=== PATIENT | male | born 1960 | race Hispanic/Latino ===

== ENCOUNTER 2024-01-22 11:25 | Day surgery (SDC) | payer BC ==
[2024-01-21 12:03] LABS: Anion Gap 9.3 mEq/L (5.0-15.0); Potassium 4.3 mEq/L (3.5-5.1)
[2024-01-21 12:04] LABS: Absolute Basophils 0.1 K/uL (0-0.5); Absolute Eosinophils 0.1 K/uL (0-0.5); Absolute Monocytes 0.6 K/uL (0.1-1.3); Absolute Neutrophil 3.9 K/uL (1.8-8.0); Basophils % 0.9 % (0-1.3); Eosinophils % 1.2 % (0-4.4); Hematocrit 43.8 % (39.6-49.0); Hemoglobin 14.9 g/dL (13.6-17.9); Lymphocytes % 29.9 % (15.3-44.8); MCH 31.6 pg (27.0-35.0); MCHC 33.9 g/dL (32.0-36.0); MCV 93.2 fL (80-100); MPV 9.5 fL (7.6-11.3); Monocytes % 8.7 % (3.3-12.3); Neutrophils % 59.3 % (41.7-73.7); Nucleated RBC Absolute Count 0.1 (0-0); Nucleated Red Blood Cells % 1.4 % (0-0); Platelets 183 thou/uL (152-406); RBC Red Blood Cell Count 4.71 M/uL (4.33-5.43); Red Cell Distribution Width 13.2 % (12.1-15.2)
[2024-01-21 14:01] LABS: Blood Morphology Comment NOT SEEN (NOT SEEN); Platelet Estimate ADEQ; White Blood Cell Scan OK (OK)
[2024-01-22] MEDS: NA CHLORIDE 0.9% 1,000 ML ONE (11:50)
[2024-01-22] MEDS ORDERED: propofoL 200 MG/20 ML VIAL IV ONE ×2 (13:08→13:48)
[2024-01-22] MEDS ORDERED: LIDOCAINE 1% MPF 5 ML VIAL ONE (13:08)
[2024-01-22 15:37] VITALS: BP 138/79; TEMP 96.8; O2SAT 100
--- NOTE | 2024-01-22 16:45 | EKG ---
Test Date: 2024-01-21 Test Time: 11:31:02 Development Mechanic: ANNALISE MEASUREMENT RESULTS: Intervals: Rate: 69 IN: 152 QRSD: 144 QT: 446 QTc: 477 [place]: P: 36 IN: 152 QRS: -24 T: -5 INTERPRETIVE STATEMENTS: Normal sinus rhythm Right bundle branch block Moderate voltage criteria for LVH, may be normal variant Inferior infarct, age undetermined Abnormal ECG No previous ECG available for comparison Electronically Signed On 01-22-24 16:42:01 CDT by Saran Velázquez
== END 2024-01-22 14:39 | disposition home or self-care (01) ==
LOC: OR 11:25
PROVIDERS: ATTEND Surgery
PROC: 0DBL8ZX Excision of Transverse Colon, Via Natural or Artificial Opening Endoscopic, Diagnostic (ICD-10-PCS; 2024-01-22)
PROC: 0DBN8ZX Excision of Sigmoid Colon, Via Natural or Artificial Opening Endoscopic, Diagnostic (ICD-10-PCS; principal; 2024-01-22 13:15)
DX: Z12.11 Encounter for screening for malignant neoplasm of colon (principal); N42.9 Disorder of prostate, unspecified; K57.30 Diverticulosis of large intestine without perforation or abscess without bleeding; K64.8 Other hemorrhoids; K63.5 Polyp of colon
CPT/HCPCS: 36415; 80048; 82947; 85025; 88305; 93005; J2001; J2704; J7030